=== PATIENT | male | born 1990 | race Caucasian/White ===

== ENCOUNTER 2017-06-17 13:02 | Emergency (ER) | payer OTHER ==
[2017-06-17] MEDS ORDERED: BUFFERED LIDOCAINE 10 ML SYRINGE SUBQ STA (14:35)
--- NOTE | 2017-06-17 14:37 | ED Physician Documentation ---
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 working just prior to arrival.) Review of Systems Constitutional: reports: Reviewed and negative Throat: reports: Reviewed and negative Cardiac: reports: Reviewed and negative PD PAST MEDICAL HISTORY - Past Medical History Past Medical History: No Cardiovascular: None Respiratory: None Neuro: None Endocrine/Autoimmune: None GI: None : None HEENT: None Psych: None Musculoskeletal: None Derm: None - Past Surgical History Past Surgical History: Yes - Present Medications Home Medications: Ambulatory Orders Medication Instructions Recorded Confirmed No Known Home Medications [No 06/17/17 06/17/17 Known Home Medications] - Allergies Allergies/Adverse Reactions: Allergies Allergy/AdvReac Type Severity Reaction Status Date / Time No Known Drug Allergies Allergy Verified 08/11/13 12:53 - Social History Does the pt smoke?: Yes Smoking Status: Current every day smoker Does the pt drink ETOH?: Yes ETOH Use: Beer Does the pt have substance abuse?: No - Immunizations Immunizations are current?: No Immunizations: TDAP >10years/unknown - POLST Patient has POLST: No PD ED PE NORMAL - Vitals Vital signs reviewed: Yes - General General: Alert and oriented X 3, No acute distress - Extremities Extremities: Other (On the ulnar side of the left thumb at the level of the interphalangeal joint there is a 1 and 1/2 cm laceration. He has good range of motion there, and no bony tenderness. He is partially but not completely insensate on that side of the tip.) - Neuro Neuro: Alert and oriented X 3, Normal speech Results - Vitals Vitals: Vital Signs - 24 hr 06/17/17 13:14 Temperature 36.6 C Heart Rate 87 Respiratory 16 Rate Blood Pressure 149/95 H O2 Saturation 99 Oxygen O2 Source Room air Procedures - Laceration (location) left thumb Length in cm: 2 Wound type: Linear Neurovascular status: Motor intact, Vascular intact. No: Sensory intact Tendon involvement: Tendon intact Anesthesia: Lidocaine 1%, With bicarb Wound Preparation: Irrigated copiously NS Skin layer closure: Nylon, Interrupted, Size #-0 - enter number (4-0) Other: Patient tolerated well, No complications, Neurovascular intact, Tetanus UTD Complexity: Simple PD MEDICAL DECISION MAKING - ED course ED course: He has a laceration of the nondominant thumb at the level of the interphalangeal with partial but not complete numbness on that side of the digit distal to that. We discussed potentially calling [facility] and having him follow-up with a hand surgeon to evaluate for nerve repair, after discussion he declined this. Departure - Departure Disposition: 01 Home, Self Care Clinical Impression: Laceration of left thumb Qualifiers: Encounter type: initial encounter Damage to nail status: without damage Foreign body presence: without foreign body Qualified Code(s): S61.012A - Laceration without foreign body of left thumb without damage to nail, initial encounter Condition: Good Record reviewed to determine appropriate education?: Yes Instructions: ED Lac Hand Poss Nerve Injy Sutr Gl Comments: Come back for any signs of infection which would include: Redness, swelling, drainage, increased pain, or fevers. Follow-up with your physician in 14 days for suture removal. Your blood pressure was elevated today on check into the emergency department. This does not mean that you have hypertension, it is a common phenomenon to come to the emergency department and have elevated blood pressure. I recommend that you see your primary care physician within the week to have it rechecked when you are feeling better. Forms: Activity restrictions
[2017-06-17] MEDS ORDERED: BACITRACIN OINT TOP ONE (15:15)
[2017-06-17 15:30] VITALS: BP 143/84
== END 2017-06-17 15:20 | disposition home or self-care (01) ==
LOC: ED 13:02
DX: S61.012A Laceration without foreign body of left thumb without damage to nail, initial encounter (principal); W26.0XXA Contact with knife, initial encounter; Y99.0 Civilian activity done for income or pay; R03.0 Elevated blood-pressure reading, without diagnosis of hypertension; F17.200 Nicotine dependence, unspecified, uncomplicated
CPT/HCPCS: 12001; 99282; 99283; A9270; 1040M

== ENCOUNTER 2018-04-08 13:49 | Outpatient (CLI) | payer OTHER ==
--- NOTE | 2018-04-08 15:27 | XRAY Report ---
Reason: CHRONIC LOW BACK PAIN Procedure Date: 04/08/2018 Accession Number: [id number] / [id number] Procedure: XRN - Thoracic Spine 2 View CPT Code: FULL RESULT: EXAM: THORACIC SPINE RADIOGRAPHY EXAM DATE: 04/08/2018 02:19 PM. CLINICAL HISTORY: CHRONIC LOW BACK PAIN. COMPARISON: None. TECHNIQUE: 2 views. FINDINGS: Lateral radiographs are limited by motion and underpenetration. Alignment: Normal. No spondylolisthesis or scoliosis. Bones: No fractures or bone lesions. Disks: Normal. Disk heights are maintained. Soft Tissues: Normal. The visualized lungs and cardiomediastinal silhouette are normal. IMPRESSION: Limited study with no abnormality detected. [facility]
--- NOTE | 2018-04-08 15:41 | XRAY Report ---
Reason: CHRONIC LOW BACK PAIN Procedure Date: 04/08/2018 Accession Number: [id number] / [id number] Procedure: XRN - Lumbar Spine 2 View CPT Code: FULL RESULT: EXAM: LUMBOSACRAL SPINE RADIOGRAPHY EXAM DATE: 04/08/2018 02:19 PM. CLINICAL HISTORY: Chronic low back pain. COMPARISONS: None. TECHNIQUE: 3 views. FINDINGS: Lateral radiograph somewhat degraded by motion artifact. Alignment: Normal. No spondylolisthesis or scoliosis. Bones: Five clx-exd-xcbysif lumbar vertebral bodies are present. No fractures or bone lesions. Disks: Normal. Disk heights are maintained. Facets: No degenerative changes. Sacroiliac Joints: Unremarkable. Soft Tissues: Normal. The visualized bowel gas pattern is normal. IMPRESSION: Normal lumbar spine radiography. [facility]
== END 2018-04-08 13:50 | disposition home or self-care (01) ==
LOC: DI.N 13:49
PROVIDERS: ATTEND Physician Assistant Medical
DX: M54.5 Low back pain (principal)
CPT/HCPCS: 72070; 72100

== ENCOUNTER 2020-07-16 17:06 | Outpatient (CLI) | payer SELFPAY | END 2020-07-16 17:07 | disposition home or self-care (01) | LOC: COV 17:06 | PROVIDERS: ATTEND Family Medicine | DX: R50.9 Fever, unspecified (principal); R53.83 Other fatigue; R43.8 Other disturbances of smell and taste; Z20.822 Contact with and (suspected) exposure to COVID-19 ==